=== PATIENT | male | born 1950 | race Caucasian/White ===

== ENCOUNTER 2024-08-15 10:34 | Outpatient (OUT) | payer MEDICARE, SELFPAY ==
[2024-08-15 11:49] LABS: Basophils Absolute Auto 0.1 10^3/uL (0.0-0.1); Basophils Percent Auto 1.1 % (0.2-2.0); Eosinophils Absolute Auto 0.2 10^3/uL (0.0-0.7); Eosinophils Percent Auto 3.4 % (0.9-7.0); Hematocrit 37.8 % (42.0-54.0); Hemoglobin 12.1 g/dL (14.0-18.0); Immature Granulocytes Abs Auto 0.06 10^3/uL (0.00-0.03); Immature Granulocytes Pct Auto 0.9 % (0.0-0.5); Lymphocytes Percent Auto 13.8 % (20.5-60.0); Mean Corpuscular Hemoglobin 29.9 pg (25.9-34.0); Mean Corpuscular Volume 93.3 fL (80.0-94.0); Monocytes Absolute Auto 0.7 10^3/uL (0.3-0.8); Monocytes Percent Auto 10.4 % (1.7-12.0); Neutrophils Percent Auto 70.4 % (43.0-75.0); Platelet Count 296 10^3/uL (150-450); Red Blood Count 4.05 10^6/uL (4.70-6.10); Red Cell Distribution Width 13.2 % (11.0-15.0)
[2024-08-15 12:50] LABS: Prostate Specific Antigen Scrn 2.25 ng/mL (<=4.00)
[2024-08-15 13:07] LABS: Alanine Aminotransferase 24 U/L (16-63); Albumin Globulin Ratio 1.1; Albumin Level 3.8 g/dL (3.4-5.0); Alkaline Phosphatase 124 U/L (46-116); Anion Gap 15.9; Aspartate Amino Transferase 24 U/L (15-37); BUN Creatinine Ratio 19.1; Bilirubin Total 0.6 mg/dL (0.2-1.0); Calcium 9.9 mg/dL (8.5-10.1); Carbon Dioxide 24.3 mmol/L (21.0-32.0); Chloride 104 mmol/L (98-107); Cholesterol 173 mg/dL (<=200); Estimated GFR (African America 35 (>=60 mL/min/1.73m^2); Estimated GFR (Non-African Ame 29 (>=60 mL/min/1.73m^2); Globulin 3.6 g/dL; Glucose 111 mg/dL (74-106); HDL Cholesterol 58 mg/dL (40-60); LDL Cholesterol Calculated 92.8 mg/dL; Potassium 5.2 mmol/L (3.5-5.1); Sodium 139 mmol/L (136-145); Total Protein 7.4 g/dL (6.4-8.2); Triglycerides 111 mg/dL (<=150); Uric Acid 9.3 mg/dL (3.5-7.2); VLDL CHOLESTEROL 22.2 mg/dL
== END 2024-08-15 10:35 | disposition home or self-care (01) ==
LOC: LAB 10:39
PROVIDERS: PCP Family Medicine; Visit Provider Family Medicine
DX: I25.10 Atherosclerotic heart disease of native coronary artery without angina pectoris (principal); M10.9 Gout, unspecified; I10 Essential (primary) hypertension; Z12.5 Encounter for screening for malignant neoplasm of prostate
CPT/HCPCS: 36415; 80053; 80061; 84550; 85025; G0103